=== PATIENT | female | born 1975 | race Two or more races ===

== ENCOUNTER 2016-09-07 18:04 | Emergency (ER) | payer OTHER ==
[2016-09-07] MEDS ORDERED: ONDANSETRON 4MG/2ML VIAL (J2405) As Ordered ONE (20:50)
[2016-09-07] MEDS ORDERED: KETOROLAC 30 MG/ML VIAL (J1885) As Ordered ONE (20:50)
[2016-09-07 21:17] LABS: BASO # 0.1 K/mm3 (0.0-0.2); BASO % 1.7 % (0.0-1.0); EOS % 0.1 % (0.0-3.0); LARGE UNSTAINED CELL % 0.3 % (0.0-4.0); LYMPH # 0.2 K/mm3 (1.5-4.5); LYMPH % 2.5 % (24.0-44.0); MEAN CORPUSCULAR HEMOGLOBIN 32.6 pg (27.0-33.0); MEAN CORPUSCULAR HGB CONC 34.4 g/dl (32.0-36.5); MEAN CORPUSCULAR VOLUME 94.8 fl (80.0-96.0); MONO # 0.2 K/mm3 (0.0-0.8); MONO % 2.8 % (0.0-5.0); NEUTROPHILS # 7.8 K/mm3 (1.8-7.7); NEUTROPHILS % 92.5 % (36.0-66.0); PLATELET COUNT, AUTOMATED 244 k/mm3 (150-450); RED CELL DISTRIBUTION WIDTH 13.1 % (11.5-14.5); WHITE BLOOD COUNT 8.4 K/mm3 (4.0-10.0)
[2016-09-07 21:33] LABS: ALBUMIN 3.7 GM/DL (3.2-5.2); ALBUMIN/GLOBULIN RATIO 1.23 (1.00-1.93); ALKALINE PHOSPHATASE 63 U/L (45-117); ALT/SGPT 15 U/L (12-78); ANION GAP 9 MEQ/L (8-16); AST/SGOT 8 U/L (15-37); BILIRUBIN,DIRECT 0.2 MG/DL (0.0-0.2); BILIRUBIN,TOTAL 1.2 MG/DL (0.2-1.0); BLOOD UREA NITROGEN 15 MG/DL (7-18); CALCIUM LEVEL 8.2 MG/DL (8.5-10.1); CARBON DIOXIDE LEVEL 24 MEQ/L (21-32); CHLORIDE LEVEL 107 MEQ/L (98-107); CREATININE FOR GFR 0.69 MG/DL (0.55-1.02); GLOMERULAR FILTRATION RATE > 60.0 (>58); GLUCOSE, FASTING 105 MG/DL (70-105); POTASSIUM SERUM 3.9 MEQ/L (3.5-5.1); SODIUM LEVEL 140 MEQ/L (136-145); TOTAL PROTEIN 6.7 GM/DL (6.4-8.2)
[2016-09-07] MEDS ORDERED: ISOVUE-370 76% 100ML VIAL (Q9967) As Ordered ONE (22:09)
[2016-09-07] MEDS ORDERED: MORPHINE 4 MG/ML 1ML SYRINGE As Ordered ONE (22:14)
--- NOTE | 2016-09-07 23:10 | REPUSA ---
CT of the abdomen and pelvis with contrast Clinical statement: Pain. Technique: Multiple axial CT images were obtained from the base of the lungs through the floor of the pelvis utilizing 5 mm axial slices after administration of nonionic intravenous contrast. Coronal an d sagittal reconstructions were also obtained. No comparison is available. Findings: Chest: The visualized lung bases are clear. Abdomen: The liver, spleen, pancreas, kidneys, gallbladder, and adrenal glands are unremarkable. The aorta is within normal limits. There is no evidence of abdominal lymphadenopathy or ascites. Pelvis: The bowel is unremarkable, with no obstructive or inflammatory changes. The appendix is not c learly identified, but now surrounding inflammatory changes are appreciated in the right lower quadra nt. The urinary bladder is within normal limits. There is a large solid mass in the posterior uterine fundus, measuring 9.2 x 7.9 cm. Diffuse heterogeneous enhancement of this lesion is noted. The adnex a are otherwise unremarkable.. There is no evidence of pelvic lymphadenopathy or ascites. Bones: There are no suspicious osseous abnormalities seen. Impression: 1. Large enhancing posterior uterine fundal mass, most consistent with a fibroid. If there is further clinical concern, ultrasound could be performed. 2. No obstructive or inflammatory bowel changes.
--- NOTE | 2016-09-07 23:42 | EDDOCDS ---
Physician Documentation [facility] Name: Yenifer Aguilar Age: 41 yrs Sex: Female : 1975 Arrival Date: 09/07/2016 Time: 18:04 Bed I7 Private MD: JEAN Alexis Disposition: 09/07/16 23:21 Discharged to Home/Self Care. Impression: Generalized abdominal pain, Vomiting, Diarrhea, unspecified, Leiomyoma of uterus - Fibriod 9.2 x7.9cm in size . - Condition is Stable. - Discharge Instructions: Abdominal Pain, Adult, Food Choices to Help Relieve Diarrhea, Adult, Nausea and Vomiting, Uterine Fibroids, [id number]. - Prescriptions for ZOFRAN ODT 4 mg - dissolve 1 tablet by ORAL route 4 times per day As needed do not chew, do not swallow whole; 10 tablet. - Medication Reconciliation, Local Pharmacy Hours, Work Release Form - 2 day form. - Follow up: JEAN Alexis; When: Call to arrange an appointment; Reason: Recheck today's complaints, Continuance of care. - Problem is new. - Symptoms have improved. Historical: - Allergies: Aspirin; Percocet; - Home Meds: 1. ibuprofen 200 mg oral tab 2 tabs (Last dose: 09/07/2016 08:00) 2. Pepto-Bismol Oral Unknown as needed (Last dose: 09/07/2016 08:00) - PMHx: none; - PSHx: none; - Social history: Smoking status: Patient uses tobacco products, light tobacco smoker. Patient uses alcohol only on a social basis. Patient/guardian denies using street drugs, No barriers to communication noted, The patient speaks fluent Romanian, Speaks appropriately for age. - Family history: Not pertinent. - : The pt / caregiver states he / she is not on anticoagulants. Home medication list is obtained from the patient. - Exposure Risk Screening:: None identified. 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 6 in. (167.64 cm); Pain 10/10; 23:39 BP 101 / 59 RA Sitting (auto/reg); Pulse 80 MON; Resp 18 S; Temp 99.7(O); Pulse Ox 95% ka4 on R/A; Pain 0/10; 18:06 Body Mass Index 23.40 (65.77 kg, 167.64 cm) dem1 23:39 Provider aware of BP ka4 MDM: 20:49 NS 0.9% 1000 ml IV at bolus once ordered. mo1 20:49 Ondansetron 4 mg IVP once ordered. mo1 20:49 IV Saline Lock ordered. mo1 20:49 Undress patient appropriately for examination ordered. mo1 20:49 ketorolac 30 mg IVP once ordered. mo1 20:49 UCG by Nursing ordered. mo1 20:50 Basic Metabolic Profile Ordered. EDMS 20:50 CBC with Diff Ordered. EDMS 20:50 Lipase Ordered. EDMS 20:50 Liver Profile Ordered. EDMS 20:50 Urinalysis Ordered. EDMS 20:50 Urine Culture Ordered. EDMS 20:50 NOTHING BY MOUTH+DIET ordered. EDMS 21:01 Financial registration complete. gjb 21:06 [facility] Payment Agreement was scanned into [employer] and attached to record. gjb 21:33 CBC with Diff Reviewed. mo1 21:47 Basic Metabolic Profile Reviewed. mo1 21:48 Lipase Reviewed. mo1 21:48 Liver Profile Reviewed. mo1 21:48 Urinalysis Reviewed. mo1 21:52 morphine 4 mg IVP once ordered. mo1 21:53 CT ABD & PELVIS: IV Contrast Only Ordered. EDMS Point of Care Testing: Urine : 20:56 hCG Reading: Negative; Control Reading: Positive; ck1 Ranges: Administered Medications: 21:00 Drug: NS 0.9% 1000 ml [sodium chloride 0.9 % intravenous solution] Route: IV; Rate: ttb bolus; Site: right antecubital; 21:00 Drug: Ondansetron 4 mg [ondansetron HCl 2 mg/mL intravenous solution (2 mL)] Route: ttb IVP; Site: right antecubital; 23:42 Follow up: Response: Nausea is resolved ka4 21:05 Drug: ketorolac 30 mg [ketorolac 30 mg/mL (1 mL) injection solution (1 mL)] Route: IVP; ttb Site: right antecubital; 22:27 Follow up: Response: No significant change. rs3 22:27 Drug: morphine 4 mg [morphine 4 mg/mL intravenous cartridge (1 mL)] Route: IVP; Site: rs3 left antecubital; 23:03 Follow up: Response: Pain is decreased rs3 Signatures: Dispatcher [employer] EDGin Franks RN RN ck1 Siri Ernandez RN RN ttb Cipriano Padron PA PA mo1 Cari Carrasco LPN SENIOR WINDOWS SYSTEMS ENGINEER ka4 Rosangela Auguste Rosemary RN rs3 The chart was reviewed and I authenticate all verbal orders and agree with the evaluation and treatment provided.Attachments: 21:06 [facility] Payment Agreement chey MTDD
--- NOTE | 2016-09-07 23:42 | EDDOCDS ---
Nurse's Notes [facility] Name: Yenifer Aguilar Age: 41 yrs Sex: Female : 1975 Arrival Date: 09/07/2016 Time: 18:04 Bed I7 / 29 Private MD: JEAN Alexis Diagnosis: Generalized abdominal pain;Vomiting;Diarrhea, unspecified;Leiomyoma of uterus-Fibriod 9.2 x7.9cm in size Presentation: 09/07 18:37 Presenting complaint: Patient states: lower abd pain started this morning, woke pt. ttb N/V/D all day. Risk factors: the patient reports no vaginal bleeding. Adult Sepsis Screening: The patient does not have new or worsening altered mentation. Patient's respiratory rate is less than 22. Systolic blood pressure is greater than 100. Patient has a qSOFA score of 0- Negative Sepsis Screen. Suicide/Homicide risk assessment- the patient denies having any suicidal and/or homicidal ideations and does not present with any other emotional, behavioral or mental health complaints. Status: The patient is a dependent. Transition of care: patient was not received from another setting of care. 18:37 Acuity: UMESH Level 3 ttb 18:37 Method Of Arrival: Walkin/Carried/Asstd ttb Triage Assessment: 18:38 General: Appears uncomfortable, well nourished, well groomed, Behavior is appropriate ttb for age, cooperative, pleasant. Pain: Location: lower abd , intermittent, 7/10. Pt Declines HIV testing. Neurological: Level of Consciousness is awake, alert. Cardiovascular: Chest pain is denied. Respiratory: No deficits noted. Airway is patent Respiratory effort is even, unlabored, Denies cough, shortness of breath. GI: Reports diarrhea, lower abdominal pain, nausea, vomiting. : Denies burning with urination, urinary frequency, urgency. Derm: Skin is normal. Injury Description: No known injury. 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 ibuprofen 200 mg oral tab 2 tabs (Last dose: 09/07/2016 08:00) 2. Pepto-Bismol Oral Unknown as needed (Last dose: 09/07/2016 08:00) - PMHx: none; - PSHx: none; - Social history: Smoking status: Patient uses tobacco products, light tobacco smoker. Patient uses alcohol only on a social basis. Patient/guardian denies using street drugs, No barriers to communication noted, The patient speaks fluent Maltese, Speaks appropriately for age. - Family history: Not pertinent. - : The pt / caregiver states he / she is not on anticoagulants. Home medication list is obtained from the patient. - Exposure Risk Screening:: None identified. Screenin:13 Screening information is obtained from the patient. Fall risk: No risks identified. ck1 Assistance ADL's: requires no assistance with activities of daily living. Abuse/DV Screen: The patient / caregiver reports he/she is: not in a situation that causes fear, pain or injury. Nutritional screening: No deficits noted. Advance Directives: Currently, there is no health care proxy. home support is adequate. Assessment: 20:12 General: Appears in no apparent distress, comfortable, Behavior is appropriate for age, ck1 cooperative. Pain: Location: abdomen Pain currently is 6 out of 10 on a pain scale. At worst was 13 out of 10 on a pain scale. Is episodic. Neurological: No deficits noted. GI: Abdomen is flat, non- distended Reports diarrhea, nausea, vomiting. : Denies burning with urination, urinary frequency, urgency. Derm: Skin is intact, is healthy with good turgor, Skin is pink, warm & dry. 21:06 Reassessment: Patient appears in no apparent distress at this time. pt resting on ttb stretcher. Abd pain continues. Meds given per orders. . Neurological: Level of Consciousness is awake, alert. Respiratory: No deficits noted. Airway is patent. 22:28 General: Appears in no apparent distress, Behavior is appropriate for age, cooperative. rs3 Respiratory: Airway is patent Respiratory effort is even, unlabored, Breath sounds are clear bilaterally. GI: Bowel sounds present X 4 quads. Abd is soft and non tender X 4 quads. Reports upper abdominal pain. 23:40 General: Appears in no apparent distress, comfortable, well nourished, well groomed, ka4 Behavior is appropriate for age, cooperative, pleasant. Pain: Denies pain. Neurological: Level of Consciousness is awake, alert, obeys commands, Oriented to person, place, time, Cloth Beamer are equal bilaterally Moves all extremities. Respiratory: Airway is patent Respiratory effort is even, unlabored, Respiratory pattern is regular, symmetrical. Derm: Skin is intact, is healthy with good turgor, Skin is pink, warm & dry. Vital Signs: 18:06 BP 127 / 62; Pulse 61; Resp 18; Temp 98.1(T); Pulse Ox 100% on R/A; Weight 65.77 kg; dem1 Height 5 ft. 6 in. (167.64 cm); Pain 10/10; 23:39 BP 101 / 59 RA Sitting (auto/reg); Pulse 80 MON; Resp 18 S; Temp 99.7(O); Pulse Ox 95% ka4 on R/A; Pain 0/10; 18:06 Body Mass Index 23.40 (65.77 kg, 167.64 cm) dem1 23:39 Provider aware of BP ka4 Vitals: 18:06 Log In Time: September 07, 2016 at 18:02. [facility] ED Course: 18:05 Patient visited by Barney Minaya. dem1 18:05 Patient moved to Waiting dem1 18:06 Vanesa [facility] is Private Physician. dem1 18:07 Patient visited by Barney Minaya. dem1 18:07 Patient moved to Pre RCE dem1 18:37 Triage Initiated ttb 18:40 Patient visited by Siri Ernandez, DOUGLAS. ttb 20:10 Patient moved to Triage 2 jmb 20:12 Patient visited by Gin Nguyen,DOUGLAS. ck1 20:13 The patient / caregiver is instructed regarding the plan of care and ED course. ck1 20:13 No IV's were initiated during this patient's visit. No procedures done that require ck1 assistance. 20:28 Cipriano Padron PA is PHCP. mo1 20:28 Gustavo Stokes DO is Attending Physician. mo1 20:36 Patient visited by Cipriano Padron PA. mo1 20:50 Patient moved to I ck1 20:52 Urinalysis Sent. ck1 20:52 Urine Culture Sent. ck1 20:57 Patient name changed from Zuehre\S\\S\Aguilar\S\ to Zuehre\S\ \S\Aguilar. EDMS 21:05 Liver Profile Sent. ttb 21:05 Lipase Sent. ttb 21:05 CBC with Diff Sent. ttb 21:05 Basic Metabolic Profile Sent. ttb 21:05 Inserted peripheral IV: 20gauge IV in right antecubital area and blood collected. ttb Patient tolerated the procedure well. Labs drawn. (by ED staff). Urine collected. Clean catch specimen. 21:06 Patient visited by Siri Ernandez RN. ttb 21:06 Patient visited by Siri Ernandez RN. ttb 21:06 [facility] Payment Agreement was scanned into [employer] and attached to record. gjb 21:48 Patient visited by Lauren Spring RN. rs3 22:28 Patient visited by Lauren Spring RN. rs3 23:00 Patient visited by Lauren Spring RN. rs3 23:21 Vanesa [facility] is Referral Physician. mo1 23:41 Discontinued IV lock intact, bleeding controlled, pressure dressing applied, No ka4 redness/swelling at site. Administered Medications: 21:00 Drug: NS 0.9% 1000 ml [sodium chloride 0.9 % intravenous solution] Route: IV; Rate: ttb bolus; Site: right antecubital; 21:00 Drug: Ondansetron 4 mg [ondansetron HCl 2 mg/mL intravenous solution (2 mL)] Route: ttb IVP; Site: right antecubital; 23:42 Follow up: Response: Nausea is resolved ka4 21:05 Drug: ketorolac 30 mg [ketorolac 30 mg/mL (1 mL) injection solution (1 mL)] Route: IVP; ttb Site: right antecubital; 22:27 Follow up: Response: No significant change. rs3 22:27 Drug: morphine 4 mg [morphine 4 mg/mL intravenous cartridge (1 mL)] Route: IVP; Site: rs3 left antecubital; 23:03 Follow up: Response: Pain is decreased rs3 Point of Care Testing: Urine : 20:56 hCG Reading: Negative; Control Reading: Positive; ck1 Ranges: Order Results: Lab Order: Basic Metabolic Profile; SPEC'M 09/07/16 21:02 Test: GLUCOSE, FASTING; Value: 105; Range: 70-105; Units: MG/DL; Status: F Test: BLOOD UREA NITROGEN; Value: 15; Range: 7-18; Units: MG/DL; Status: F Test: CREATININE FOR GFR; Value: 0.69; Range: 0.55-1.02; Units: MG/DL; Status: F Test: GLOMERULAR FILTRATION RATE; Value: > 60.0; Range: >58; Status: F Test: SODIUM LEVEL; Value: 140; Range: 136-145; Units: MEQ/L; Status: F Test: POTASSIUM SERUM; Value: 3.9; Range: 3.5-5.1; Units: MEQ/L; Status: F Test: CHLORIDE LEVEL; Value: 107; Range: 98-107; Units: MEQ/L; Status: F Test: CARBON DIOXIDE LEVEL; Value: 24; Range: 21-32; Units: MEQ/L; Status: F Test: ANION GAP; Value: 9; Range: 8-16; Units: MEQ/L; Status: F Test: CALCIUM LEVEL; Value: 8.2; Range: 8.5-10.1; Abnormal: Below low normal; Units: MG/DL; Status: F Test Note: ; Units are mL/min/1.73 m2 Chronic Kidney Disease Staging per NKF: Stage I & II GFR >=60 Normal to Mildly Decreased Stage III GFR 30-59 Moderately Decreased Stage IV GFR 15-29 Severely Decreased Stage V GFR <15 Very Little GFR Left ESRD GFR <15 on BENEFITS SALES CONSULTANT Lab Order: CBC with Diff; SPEC'M 09/07/16 21:02 Test: WHITE BLOOD COUNT; Value: 8.4; Range: 4.0-10.0; Units: K/mm3; Status: F Test: RED BLOOD COUNT; Value: 4.09; Range: 4.00-5.40; Units: M/mm3; Status: F Test: HEMOGLOBIN; Value: 13.3; Range: 12.0-16.0; Units: g/dl; Status: F Test: HEMATOCRIT; Value: 38.8; Range: 36.0-47.0; Units: %; Status: F Test: MEAN CORPUSCULAR VOLUME; Value: 94.8; Range: 80.0-96.0; Units: fl; Status: F Test: MEAN CORPUSCULAR HEMOGLOBIN; Value: 32.6; Range: 27.0-33.0; Units: pg; Status: F Test: MEAN CORPUSCULAR HGB CONC; Value: 34.4; Range: 32.0-36.5; Units: g/dl; Status: F Test: RED CELL DISTRIBUTION WIDTH; Value: 13.1; Range: 11.5-14.5; Units: %; Status: F Test: PLATELET COUNT, AUTOMATED; Value: 244; Range: 150-450; Units: k/mm3; Status: F Test: NEUTROPHILS %; Value: 92.5; Range: 36.0-66.0; Abnormal: Above high normal; Units: %; Status: F Test: LYMPH %; Value: 2.5; Range: 24.0-44.0; Abnormal: Below low normal; Units: %; Status: F Test: MONO %; Value: 2.8; Range: 0.0-5.0; Units: %; Status: F Test: EOS %; Value: 0.1; Range: 0.0-3.0; Units: %; Status: F Test: BASO %; Value: 1.7; Range: 0.0-1.0; Abnormal: Above high normal; Units: %; Status: F Test: LARGE UNSTAINED CELL %; Value: 0.3; Range: 0.0-4.0; Units: %; Status: F Test: NEUTROPHILS #; Value: 7.8; Range: 1.8-7.7; Abnormal: Above high normal; Units: K/mm3; Status: F Test: LYMPH #; Value: 0.2; Range: 1.5-4.5; Abnormal: Below low normal; Units: K/mm3; Status: F Test: MONO #; Value: 0.2; Range: 0.0-0.8; Units: K/mm3; Status: F Test: EOS #; Value: 0.0; Range: 0.0-0.50; Units: K/mm3; Status: F Test: BASO #; Value: 0.1; Range: 0.0-0.2; Units: K/mm3; Status: F Test: LARGE UNSTAINED CELL #; Value: 0.0; Range: 0.0-0.4; Units: K/mm3; Status: F Lab Order: Lipase; SPEC'M 09/07/16 21:02 Test: LIPASE; Value: 60; Range: 73-393; Abnormal: Below low normal; Units: U/L; Status: F Lab Order: Liver Profile; SPEC'M 09/07/16 21:02 Test: AST/SGOT; Value: 8; Range: 15-37; Abnormal: Below low normal; Units: U/L; Status: F Test: ALT/SGPT; Value: 15; Range: 12-78; Units: U/L; Status: F Test: ALKALINE PHOSPHATASE; Value: 63; Range: 45-117; Units: U/L; Status: F Test: BILIRUBIN,TOTAL; Value: 1.2; Range: 0.2-1.0; Abnormal: Above high normal; Units: MG/DL; Status: F Test: BILIRUBIN,DIRECT; Value: 0.2; Range: 0.0-0.2; Units: MG/DL; Status: F Test: TOTAL PROTEIN; Value: 6.7; Range: 6.4-8.2; Units: GM/DL; Status: F Test: ALBUMIN; Value: 3.7; Range: 3.2-5.2; Units: GM/DL; Status: F Test: ALBUMIN/GLOBULIN RATIO; Value: 1.23; Range: 1.00-1.93; Status: F Lab Order: Urinalysis; SPEC'M 09/07/16 20:49 Test: APPEARANCE, URINE; Value: HAZY; Range: CLEAR; Status: F Test: COLOR, URINE; Value: YELLOW; Range: YELLOW; Status: F Test: PH,URINE; Value: 6.0; Range: 5.0-9.0; Units: UNITS; Status: F Test: SPECIFIC GRAVITY URINE AUTO; Value: 1.024; Range: 1.002-1.035; Status: F Test: PROTEIN, URINE AUTO; Value: NEGATIVE; Range: NEGATIVE; Units: mg/dL; Status: F Test: GLUCOSE, URINE (UA) AUTO; Value: NEGATIVE; Range: NEGATIVE; Units: mg/dL; Status: F Test: KETONE, URINE AUTO; Value: NEGATIVE; Range: NEGATIVE; Units: mg/dL; Status: F Test: UROBILINOGEN, URINE AUTO; Value: 0.2; Range: 0.0-2.0; Units: mg/dL; Status: F Test: BILIRUBIN, URINE AUTO; Value: NEGATIVE; Range: NEGATIVE; Status: F Test: NITRITE, URINE AUTO; Value: NEGATIVE; Range: NEGATIVE; Status: F Test: LEUKOCYTE ESTERASE, URINE AUTO; Value: NEGATIVE; Range: NEGATIVE; Status: F Test: BLOOD, URINE BLOOD; Value: 1+; Range: NEGATIVE; Abnormal: Above high normal; Status: F Test: WBC, URINE AUTO; Value: 1; Range: 0-3; Units: /HPF; Status: F Test: RBC, URINE AUTO; Value: 11; Range: 0-3; Abnormal: Above high normal; Units: /HPF; Status: F Test: BACTERIA, URINE AUTO; Value: NEGATIVE; Range: NEGATIVE; Status: F Test: SQUAMOUS EPITHELIAL CELL UR AU; Value: 4; Range: 0-6; Units: /HPF; Status: F Test: MUCUS, URINE; Value: SMALL; Range: NEGATIVE; Status: F Test: HYALINE CAST, URINE AUTO; Value: 0; Range: 0-1; Units: /LPF; Status: F Outcome: 23:21 Discharge ordered by Provider. mo1 23:41 Discharge Assessment: Patient awake, alert and oriented x 3. No cognitive and/or ka4 functional deficits noted. Patient verbalized understanding of disposition instructions. patient administered narcotics - yes. Pt provided with safe discharge. The following High Risk Discharge criteria are identified: None. Discharged to home ambulatory. Condition: good Condition: stable. CT Study completed. Property :Personal belongings accompany Pt. 23:42 Patient left the ED. ka4 Signatures: Dispatcher [employer] EDAZ Gin NguyenRN RN ata1 Lauren Spring RN RN rs3 Barney Min[facility] Siri Ernandez RN RN ttb O'Hagan, Michael, PA PA mo1 Pranav Cruz,RN Cari Kim LPN LPN ka4 Rosangela Auguste MTDD
--- NOTE | 2016-09-10 00:43 | EDDOCDS ---
Physician Documentation [facility] Name: Yenifer Aguilar Age: 41 yrs Sex: Female : 1975 Arrival Date: 09/07/2016 Time: 18:04 Bed I7 Private MD: JEAN Alexis Disposition: 09/07/16 23:21 Discharged to Home/Self Care. Impression: Generalized abdominal pain, Vomiting, Diarrhea, unspecified, Leiomyoma of uterus - Fibriod 9.2 x7.9cm in size . - Condition is Stable. - Discharge Instructions: Abdominal Pain, Adult, Food Choices to Help Relieve Diarrhea, Adult, Nausea and Vomiting, Uterine Fibroids, [id number]. - Prescriptions for ZOFRAN ODT 4 mg - dissolve 1 tablet by ORAL route 4 times per day As needed do not chew, do not swallow whole; 10 tablet. - Medication Reconciliation, Local Pharmacy Hours, Work Release Form - 2 day form. - Follow up: JEAN Alexis; When: Call to arrange an appointment; Reason: Recheck today's complaints, Continuance of care. - Problem is new. - Symptoms have improved. Historical: - Allergies: Aspirin; Percocet; - Home Meds: 1. ibuprofen 200 mg oral tab 2 tabs (Last dose: 09/07/2016 08:00) 2. Pepto-Bismol Oral Unknown as needed (Last dose: 09/07/2016 08:00) - PMHx: none; - PSHx: none; - Social history: Smoking status: Patient uses tobacco products, light tobacco smoker. Patient uses alcohol only on a social basis. Patient/guardian denies using street drugs, No barriers to communication noted, The patient speaks fluent Finnish, Speaks appropriately for age. - Family history: Not pertinent. - : The pt / caregiver states he / she is not on anticoagulants. Home medication list is obtained from the patient. - Exposure Risk Screening:: None identified. 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 6 in. (167.64 cm); Pain 10/10; 23:39 BP 101 / 59 RA Sitting (auto/reg); Pulse 80 MON; Resp 18 S; Temp 99.7(O); Pulse Ox 95% ka4 on R/A; Pain 0/10; 18:06 Body Mass Index 23.40 (65.77 kg, 167.64 cm) dem1 23:39 Provider aware of BP ka4 MDM: 20:49 NS 0.9% 1000 ml IV at bolus once ordered. mo1 20:49 Ondansetron 4 mg IVP once ordered. mo1 20:49 IV Saline Lock ordered. mo1 20:49 Undress patient appropriately for examination ordered. mo1 20:49 ketorolac 30 mg IVP once ordered. mo1 20:49 UCG by Nursing ordered. mo1 20:50 Basic Metabolic Profile Ordered. EDMS 20:50 CBC with Diff Ordered. EDMS 20:50 Lipase Ordered. EDMS 20:50 Liver Profile Ordered. EDMS 20:50 Urinalysis Ordered. EDMS 20:50 Urine Culture Ordered. EDMS 20:50 NOTHING BY MOUTH+DIET ordered. EDMS 21:01 Financial registration complete. gjb 21:06 [facility] Payment Agreement was scanned into [employer] and attached to record. gjb 21:33 CBC with Diff Reviewed. mo1 21:47 Basic Metabolic Profile Reviewed. mo1 21:48 Lipase Reviewed. mo1 21:48 Liver Profile Reviewed. mo1 21:48 Urinalysis Reviewed. mo1 21:52 morphine 4 mg IVP once ordered. mo1 21:53 CT ABD & PELVIS: IV Contrast Only Ordered. EDMS 09/08 07:20 T-Sheet-- Draft Copy was scanned into [employer] and attached to record. gb 11:53 Radiology Report was scanned into [employer] and attached to record. gb 21:15 ED course: ft drgonzales fp faxed formal report of ct abd/p for fu mlg. ml Point of Care Testing: Urine : 09/07 20:56 hCG Reading: Negative; Control Reading: Positive; ck1 Ranges: Administered Medications: 21:00 Drug: NS 0.9% 1000 ml [sodium chloride 0.9 % intravenous solution] Route: IV; Rate: ttb bolus; Site: right antecubital; 21:00 Drug: Ondansetron 4 mg [ondansetron HCl 2 mg/mL intravenous solution (2 mL)] Route: ttb IVP; Site: right antecubital; 23:42 Follow up: Response: Nausea is resolved ka4 21:05 Drug: ketorolac 30 mg [ketorolac 30 mg/mL (1 mL) injection solution (1 mL)] Route: IVP; ttb Site: right antecubital; 22:27 Follow up: Response: No significant change. rs3 22:27 Drug: morphine 4 mg [morphine 4 mg/mL intravenous cartridge (1 mL)] Route: IVP; Site: rs3 left antecubital; 23:03 Follow up: Response: Pain is decreased rs3 Signatures: Dispatcher [employer] EDMS Camden-Lorri Carreon MD MD Shahla Pope, Gin BobRN RN ck1 Siri Ernandez RN RN ttb Cipriano Padron PA PA mo1 Cari Carrasco LPN LPN ka4 Rosangela Auguste Rosemary RN rs3 The chart was reviewed and I authenticate all verbal orders and agree with the evaluation and treatment provided.Attachments: 21:06 [facility] Payment Agreement gjb 09/08 07:20 T-Sheet-- Draft Copy gb Chart Complete [facility]
--- NOTE | 2016-09-10 00:43 | EDDOCDS ---
Physician Documentation [facility] Name: Yenifer Aguilar Age: 41 yrs Sex: Female : 1975 Arrival Date: 09/07/2016 Time: 18:04 Bed I7 Private MD: JEAN Alexis Disposition: 09/07/16 23:21 Discharged to Home/Self Care. Impression: Generalized abdominal pain, Vomiting, Diarrhea, unspecified, Leiomyoma of uterus - Fibriod 9.2 x7.9cm in size . - Condition is Stable. - Discharge Instructions: Abdominal Pain, Adult, Food Choices to Help Relieve Diarrhea, Adult, Nausea and Vomiting, Uterine Fibroids, Dmoh-ip-Nohk. - Prescriptions for ZOFRAN ODT 4 mg - dissolve 1 tablet by ORAL route 4 times per day As needed do not chew, do not swallow whole; 10 tablet. - Medication Reconciliation, Local Pharmacy Hours, Work Release Form - 2 day form. - Follow up: JEAN Alexis; When: Call to arrange an appointment; Reason: Recheck today's complaints, Continuance of care. - Problem is new. - Symptoms have improved. Historical: - Allergies: Aspirin; Percocet; - Home Meds: 1. ibuprofen 200 mg oral tab 2 tabs (Last dose: 09/07/2016 08:00) 2. Pepto-Bismol Oral Unknown as needed (Last dose: 09/07/2016 08:00) - PMHx: none; - PSHx: none; - Social history: Smoking status: Patient uses tobacco products, light tobacco smoker. Patient uses alcohol only on a social basis. Patient/guardian denies using street drugs, No barriers to communication noted, The patient speaks fluent Sudanese, Speaks appropriately for age. - Family history: Not pertinent. - : The pt / caregiver states he / she is not on anticoagulants. Home medication list is obtained from the patient. - Exposure Risk Screening:: None identified. 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 6 in. (167.64 cm); Pain 10/10; 23:39 BP 101 / 59 RA Sitting (auto/reg); Pulse 80 MON; Resp 18 S; Temp 99.7(O); Pulse Ox 95% ka4 on R/A; Pain 0/10; 18:06 Body Mass Index 23.40 (65.77 kg, 167.64 cm) dem1 23:39 Provider aware of BP ka4 MDM: 20:49 NS 0.9% 1000 ml IV at bolus once ordered. mo1 20:49 Ondansetron 4 mg IVP once ordered. mo1 20:49 IV Saline Lock ordered. mo1 20:49 Undress patient appropriately for examination ordered. mo1 20:49 ketorolac 30 mg IVP once ordered. mo1 20:49 UCG by Nursing ordered. mo1 20:50 Basic Metabolic Profile Ordered. EDMS 20:50 CBC with Diff Ordered. EDMS 20:50 Lipase Ordered. EDMS 20:50 Liver Profile Ordered. EDMS 20:50 Urinalysis Ordered. EDMS 20:50 Urine Culture Ordered. EDMS 20:50 NOTHING BY MOUTH+DIET ordered. EDMS 21:01 Financial registration complete. gjb 21:06 [facility] Payment Agreement was scanned into [employer] and attached to record. gjb 21:33 CBC with Diff Reviewed. mo1 21:47 Basic Metabolic Profile Reviewed. mo1 21:48 Lipase Reviewed. mo1 21:48 Liver Profile Reviewed. mo1 21:48 Urinalysis Reviewed. mo1 21:52 morphine 4 mg IVP once ordered. mo1 21:53 CT ABD & PELVIS: IV Contrast Only Ordered. EDMS 09/08 07:20 T-Sheet-- Draft Copy was scanned into [employer] and attached to record. gb 11:53 Radiology Report was scanned into [employer] and attached to record. gb 21:15 ED course: ft drgonzales fp faxed formal report of ct abd/p for fu mlg. ml Point of Care Testing: Urine : 09/07 20:56 hCG Reading: Negative; Control Reading: Positive; ck1 Ranges: Administered Medications: 21:00 Drug: NS 0.9% 1000 ml [sodium chloride 0.9 % intravenous solution] Route: IV; Rate: ttb bolus; Site: right antecubital; 21:00 Drug: Ondansetron 4 mg [ondansetron HCl 2 mg/mL intravenous solution (2 mL)] Route: ttb IVP; Site: right antecubital; 23:42 Follow up: Response: Nausea is resolved ka4 21:05 Drug: ketorolac 30 mg [ketorolac 30 mg/mL (1 mL) injection solution (1 mL)] Route: IVP; ttb Site: right antecubital; 22:27 Follow up: Response: No significant change. rs3 22:27 Drug: morphine 4 mg [morphine 4 mg/mL intravenous cartridge (1 mL)] Route: IVP; Site: rs3 left antecubital; 23:03 Follow up: Response: Pain is decreased rs3 Signatures: Dispatcher [employer] EDMS Camden-Lorri Carreon MD MD Shahla Pope, Gin BobRN RN ck1 Siri Ernandez RN RN ttb Cipriano Padron PA PA mo1 Cari Carrasco LPN LPN ka4 Rosangela Auguste Rosemary RN rs3 The chart was reviewed and I authenticate all verbal orders and agree with the evaluation and treatment provided.Attachments: 21:06 [facility] Payment Agreement gjb 09/08 07:20 T-Sheet-- Draft Copy gb Chart Complete [facility]
--- NOTE | 2016-09-10 00:43 | EDDOCDS ---
Nurse's Notes [facility] Name: Yenifer Aguilar Age: 41 yrs Sex: Female : 1975 Arrival Date: 09/07/2016 Time: 18:04 Bed I7 / 29 Private MD: JEAN Alexis Diagnosis: Generalized abdominal pain;Vomiting;Diarrhea, unspecified;Leiomyoma of uterus-Fibriod 9.2 x7.9cm in size Presentation: 09/07 18:37 Presenting complaint: Patient states: lower abd pain started this morning, woke pt. ttb N/V/D all day. Risk factors: the patient reports no vaginal bleeding. Adult Sepsis Screening: The patient does not have new or worsening altered mentation. Patient's respiratory rate is less than 22. Systolic blood pressure is greater than 100. Patient has a qSOFA score of 0- Negative Sepsis Screen. Suicide/Homicide risk assessment- the patient denies having any suicidal and/or homicidal ideations and does not present with any other emotional, behavioral or mental health complaints. Status: The patient is a dependent. Transition of care: patient was not received from another setting of care. 18:37 Acuity: UMESH Level 3 ttb 18:37 Method Of Arrival: Walkin/Carried/Asstd ttb Triage Assessment: 18:38 General: Appears uncomfortable, well nourished, well groomed, Behavior is appropriate ttb for age, cooperative, pleasant. Pain: Location: lower abd , intermittent, 7/10. Pt Declines HIV testing. Neurological: Level of Consciousness is awake, alert. Cardiovascular: Chest pain is denied. Respiratory: No deficits noted. Airway is patent Respiratory effort is even, unlabored, Denies cough, shortness of breath. GI: Reports diarrhea, lower abdominal pain, nausea, vomiting. : Denies burning with urination, urinary frequency, urgency. Derm: Skin is normal. Injury Description: No known injury. 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 ibuprofen 200 mg oral tab 2 tabs (Last dose: 09/07/2016 08:00) 2. Pepto-Bismol Oral Unknown as needed (Last dose: 09/07/2016 08:00) - PMHx: none; - PSHx: none; - Social history: Smoking status: Patient uses tobacco products, light tobacco smoker. Patient uses alcohol only on a social basis. Patient/guardian denies using street drugs, No barriers to communication noted, The patient speaks fluent Croatian, Speaks appropriately for age. - Family history: Not pertinent. - : The pt / caregiver states he / she is not on anticoagulants. Home medication list is obtained from the patient. - Exposure Risk Screening:: None identified. Screenin:13 Screening information is obtained from the patient. Fall risk: No risks identified. ck1 Assistance ADL's: requires no assistance with activities of daily living. Abuse/DV Screen: The patient / caregiver reports he/she is: not in a situation that causes fear, pain or injury. Nutritional screening: No deficits noted. Advance Directives: Currently, there is no health care proxy. home support is adequate. Assessment: 20:12 General: Appears in no apparent distress, comfortable, Behavior is appropriate for age, ck1 cooperative. Pain: Location: abdomen Pain currently is 6 out of 10 on a pain scale. At worst was 13 out of 10 on a pain scale. Is episodic. Neurological: No deficits noted. GI: Abdomen is flat, non- distended Reports diarrhea, nausea, vomiting. : Denies burning with urination, urinary frequency, urgency. Derm: Skin is intact, is healthy with good turgor, Skin is pink, warm & dry. 21:06 Reassessment: Patient appears in no apparent distress at this time. pt resting on ttb stretcher. Abd pain continues. Meds given per orders. . Neurological: Level of Consciousness is awake, alert. Respiratory: No deficits noted. Airway is patent. 22:28 General: Appears in no apparent distress, Behavior is appropriate for age, cooperative. rs3 Respiratory: Airway is patent Respiratory effort is even, unlabored, Breath sounds are clear bilaterally. GI: Bowel sounds present X 4 quads. Abd is soft and non tender X 4 quads. Reports upper abdominal pain. 23:40 General: Appears in no apparent distress, comfortable, well nourished, well groomed, ka4 Behavior is appropriate for age, cooperative, pleasant. Pain: Denies pain. Neurological: Level of Consciousness is awake, alert, obeys commands, Oriented to person, place, time, Dishcloth Folder are equal bilaterally Moves all extremities. Respiratory: Airway is patent Respiratory effort is even, unlabored, Respiratory pattern is regular, symmetrical. Derm: Skin is intact, is healthy with good turgor, Skin is pink, warm & dry. Vital Signs: 18:06 BP 127 / 62; Pulse 61; Resp 18; Temp 98.1(T); Pulse Ox 100% on R/A; Weight 65.77 kg; dem1 Height 5 ft. 6 in. (167.64 cm); Pain 10/10; 23:39 BP 101 / 59 RA Sitting (auto/reg); Pulse 80 MON; Resp 18 S; Temp 99.7(O); Pulse Ox 95% ka4 on R/A; Pain 0/10; 18:06 Body Mass Index 23.40 (65.77 kg, 167.64 cm) dem1 23:39 Provider aware of BP ka4 Vitals: 18:06 Log In Time: September 07, 2016 at 18:02. [facility] ED Course: 18:05 Patient visited by Barney Minaya. dem1 18:05 Patient moved to Waiting dem1 18:06 Vanesa [facility] is Private Physician. dem1 18:07 Patient visited by Barney Minaya. dem1 18:07 Patient moved to Pre RCE dem1 18:37 Triage Initiated ttb 18:40 Patient visited by Siri Ernandez, DOUGLAS. ttb 20:10 Patient moved to Triage 2 jmb 20:12 Patient visited by Gin Nguyen,DOUGLAS. ck1 20:13 The patient / caregiver is instructed regarding the plan of care and ED course. ck1 20:13 No IV's were initiated during this patient's visit. No procedures done that require ck1 assistance. 20:28 Cipriano Padron PA is PHCP. mo1 20:28 Gustavo Stokes DO is Attending Physician. mo1 20:36 Patient visited by Cipriano Padron PA. mo1 20:50 Patient moved to I ck1 20:52 Urinalysis Sent. ck1 20:52 Urine Culture Sent. ck1 20:57 Patient name changed from Zuehre\S\\S\Aguilar\S\ to Zuehre\S\ \S\Aguilar. EDMS 21:05 Liver Profile Sent. ttb 21:05 Lipase Sent. ttb 21: CBC with Diff Sent. ttb 21:05 Basic Metabolic Profile Sent. ttb 21:05 Inserted peripheral IV: 20gauge IV in right antecubital area and blood collected. ttb Patient tolerated the procedure well. Labs drawn. (by ED staff). Urine collected. Clean catch specimen. 21:06 Patient visited by Siri Ernandez RN. ttb 21:06 Patient visited by Siri Ernandez RN. ttb 21:06 [facility] Payment Agreement was scanned into [employer] and attached to record. gjb 21:48 Patient visited by Lauren Spring RN. rs3 22:28 Patient visited by Lauren Spring RN. rs3 23:00 Patient visited by Lauren Spring RN. rs3 23:21 Vanesa [facility] [place] is Referral Physician. mo1 23:41 Discontinued IV lock intact, bleeding controlled, pressure dressing applied, No ka4 redness/swelling at site. 23:49 CT ABD & PELVIS: IV Contrast Only Returned. EDMS 09/08 07:20 T-Sheet-- Draft Copy was scanned into [employer] and attached to record. gb 11:53 Radiology Report was scanned into [employer] and attached to record. gb Administered Medications: 09/07 21:00 Drug: NS 0.9% 1000 ml [sodium chloride 0.9 % intravenous solution] Route: IV; Rate: ttb bolus; Site: right antecubital; 21:00 Drug: Ondansetron 4 mg [ondansetron HCl 2 mg/mL intravenous solution (2 mL)] Route: ttb IVP; Site: right antecubital; 23:42 Follow up: Response: Nausea is resolved ka4 21:05 Drug: ketorolac 30 mg [ketorolac 30 mg/mL (1 mL) injection solution (1 mL)] Route: IVP; ttb Site: right antecubital; 22:27 Follow up: Response: No significant change. rs3 22:27 Drug: morphine 4 mg [morphine 4 mg/mL intravenous cartridge (1 mL)] Route: IVP; Site: rs3 left antecubital; 23:03 Follow up: Response: Pain is decreased rs3 Point of Care Testing: Urine : 20:56 hCG Reading: Negative; Control Reading: Positive; ck1 Ranges: Order Results: Lab Order: Basic Metabolic Profile; SPEC'M 09/07/16 21:02 Test: GLUCOSE, FASTING; Value: 105; Range: 70-105; Units: MG/DL; Status: F Test: BLOOD UREA NITROGEN; Value: 15; Range: 7-18; Units: MG/DL; Status: F Test: CREATININE FOR GFR; Value: 0.69; Range: 0.55-1.02; Units: MG/DL; Status: F Test: GLOMERULAR FILTRATION RATE; Value: > 60.0; Range: >58; Status: F Test: SODIUM LEVEL; Value: 140; Range: 136-145; Units: MEQ/L; Status: F Test: POTASSIUM SERUM; Value: 3.9; Range: 3.5-5.1; Units: MEQ/L; Status: F Test: CHLORIDE LEVEL; Value: 107; Range: 98-107; Units: MEQ/L; Status: F Test: CARBON DIOXIDE LEVEL; Value: 24; Range: 21-32; Units: MEQ/L; Status: F Test: ANION GAP; Value: 9; Range: 8-16; Units: MEQ/L; Status: F Test: CALCIUM LEVEL; Value: 8.2; Range: 8.5-10.1; Abnormal: Below low normal; Units: MG/DL; Status: F Test Note: ; Units are mL/min/1.73 m2 Chronic Kidney Disease Staging per NKF: Stage I & II GFR >=60 Normal to Mildly Decreased Stage III GFR 30-59 Moderately Decreased Stage IV GFR 15-29 Severely Decreased Stage V GFR <15 Very Little GFR Left ESRD GFR <15 on BREAK OUT MAN Lab Order: CBC with Diff; SPEC'M 09/07/16 21:02 Test: WHITE BLOOD COUNT; Value: 8.4; Range: 4.0-10.0; Units: K/mm3; Status: F Test: RED BLOOD COUNT; Value: 4.09; Range: 4.00-5.40; Units: M/mm3; Status: F Test: HEMOGLOBIN; Value: 13.3; Range: 12.0-16.0; Units: g/dl; Status: F Test: HEMATOCRIT; Value: 38.8; Range: 36.0-47.0; Units: %; Status: F Test: MEAN CORPUSCULAR VOLUME; Value: 94.8; Range: 80.0-96.0; Units: fl; Status: F Test: MEAN CORPUSCULAR HEMOGLOBIN; Value: 32.6; Range: 27.0-33.0; Units: pg; Status: F Test: MEAN CORPUSCULAR HGB CONC; Value: 34.4; Range: 32.0-36.5; Units: g/dl; Status: F Test: RED CELL DISTRIBUTION WIDTH; Value: 13.1; Range: 11.5-14.5; Units: %; Status: F Test: PLATELET COUNT, AUTOMATED; Value: 244; Range: 150-450; Units: k/mm3; Status: F Test: NEUTROPHILS %; Value: 92.5; Range: 36.0-66.0; Abnormal: Above high normal; Units: %; Status: F Test: LYMPH %; Value: 2.5; Range: 24.0-44.0; Abnormal: Below low normal; Units: %; Status: F Test: MONO %; Value: 2.8; Range: 0.0-5.0; Units: %; Status: F Test: EOS %; Value: 0.1; Range: 0.0-3.0; Units: %; Status: F Test: BASO %; Value: 1.7; Range: 0.0-1.0; Abnormal: Above high normal; Units: %; Status: F Test: LARGE UNSTAINED CELL %; Value: 0.3; Range: 0.0-4.0; Units: %; Status: F Test: NEUTROPHILS #; Value: 7.8; Range: 1.8-7.7; Abnormal: Above high normal; Units: K/mm3; Status: F Test: LYMPH #; Value: 0.2; Range: 1.5-4.5; Abnormal: Below low normal; Units: K/mm3; Status: F Test: MONO #; Value: 0.2; Range: 0.0-0.8; Units: K/mm3; Status: F Test: EOS #; Value: 0.0; Range: 0.0-0.50; Units: K/mm3; Status: F Test: BASO #; Value: 0.1; Range: 0.0-0.2; Units: K/mm3; Status: F Test: LARGE UNSTAINED CELL #; Value: 0.0; Range: 0.0-0.4; Units: K/mm3; Status: F Lab Order: Lipase; [facility] 09/07/16 21:02 Test: LIPASE; Value: 60; Range: 73-393; Abnormal: Below low normal; Units: U/L; Status: F Lab Order: Liver Profile; [facility] 09/07/16 21:02 Test: AST/SGOT; Value: 8; Range: 15-37; Abnormal: Below low normal; Units: U/L; Status: F Test: ALT/SGPT; Value: 15; Range: 12-78; Units: U/L; Status: F Test: ALKALINE PHOSPHATASE; Value: 63; Range: 45-117; Units: U/L; Status: F Test: BILIRUBIN,TOTAL; Value: 1.2; Range: 0.2-1.0; Abnormal: Above high normal; Units: MG/DL; Status: F Test: BILIRUBIN,DIRECT; Value: 0.2; Range: 0.0-0.2; Units: MG/DL; Status: F Test: TOTAL PROTEIN; Value: 6.7; Range: 6.4-8.2; Units: GM/DL; Status: F Test: ALBUMIN; Value: 3.7; Range: 3.2-5.2; Units: GM/DL; Status: F Test: ALBUMIN/GLOBULIN RATIO; Value: 1.23; Range: 1.00-1.93; Status: F Lab Order: Urinalysis; [facility] 09/07/16 20:49 Test: APPEARANCE, URINE; Value: HAZY; Range: CLEAR; Status: F Test: COLOR, URINE; Value: YELLOW; Range: YELLOW; Status: F Test: PH,URINE; Value: 6.0; Range: 5.0-9.0; Units: UNITS; Status: F Test: SPECIFIC GRAVITY URINE AUTO; Value: 1.024; Range: 1.002-1.035; Status: F Test: PROTEIN, URINE AUTO; Value: NEGATIVE; Range: NEGATIVE; Units: mg/dL; Status: F Test: GLUCOSE, URINE (UA) AUTO; Value: NEGATIVE; Range: NEGATIVE; Units: mg/dL; Status: F Test: KETONE, URINE AUTO; Value: NEGATIVE; Range: NEGATIVE; Units: mg/dL; Status: F Test: UROBILINOGEN, URINE AUTO; Value: 0.2; Range: 0.0-2.0; Units: mg/dL; Status: F Test: BILIRUBIN, URINE AUTO; Value: NEGATIVE; Range: NEGATIVE; Status: F Test: NITRITE, URINE AUTO; Value: NEGATIVE; Range: NEGATIVE; Status: F Test: LEUKOCYTE ESTERASE, URINE AUTO; Value: NEGATIVE; Range: NEGATIVE; Status: F Test: BLOOD, URINE BLOOD; Value: 1+; Range: NEGATIVE; Abnormal: Above high normal; Status: F Test: WBC, URINE AUTO; Value: 1; Range: 0-3; Units: /HPF; Status: F Test: RBC, URINE AUTO; Value: 11; Range: 0-3; Abnormal: Above high normal; Units: /HPF; Status: F Test: BACTERIA, URINE AUTO; Value: NEGATIVE; Range: NEGATIVE; Status: F Test: SQUAMOUS EPITHELIAL CELL UR AU; Value: 4; Range: 0-6; Units: /HPF; Status: F Test: MUCUS, URINE; Value: SMALL; Range: NEGATIVE; Status: F Test: HYALINE CAST, URINE AUTO; Value: 0; Range: 0-1; Units: /LPF; Status: F Lab Order: Urine Culture; SPEC'M 09/07/16 20:49 Test: URINE CULTURE; Value: URINE CULTURE RESULT SPECIMEN APPEARS CONTAMINATED; Status: F Radiology Order: CT ABD & PELVIS: IV Contrast Only Test: CT ABD & PELVIS: IV Contrast Only REASON FOR EXAMINATION: right sided abd pain; ; CT of the abdomen and pelvis with contrast; Clinical statement: Pain.; Technique: Multiple axial CT images were obtained from the base of the lungs through the floor of the; pelvis utilizing 5 mm axial slices after administration of nonionic intravenous contrast. Coronal an; d sagittal reconstructions were also obtained.; No comparison is available.; Findings:; Chest: The visualized lung bases are clear.; Abdomen: The liver, spleen, pancreas, kidneys, gallbladder, and adrenal glands are unremarkable. The; aorta is within normal limits. There is no evidence of abdominal lymphadenopathy or ascites.; Pelvis: The bowel is unremarkable, with no obstructive or inflammatory changes. The appendix is not c; learly identified, but now surrounding inflammatory changes are appreciated in the right lower quadra; nt. The urinary bladder is within normal limits. There is a large solid mass in the posterior uterine; fundus, measuring 9.2 x 7.9 cm. Diffuse heterogeneous enhancement of this lesion is noted. The adnex; a are otherwise unremarkable.. There is no evidence of pelvic lymphadenopathy or ascites.; Bones: There are no suspicious osseous abnormalities seen.; Impression:; 1. Large enhancing posterior uterine fundal mass, most consistent with a fibroid. If there is further; clinical concern, ultrasound could be performed.; 2. No obstructive or inflammatory bowel changes.; ; Outcome: 23:21 Discharge ordered by Provider. mo1 23:41 Discharge Assessment: Patient awake, alert and oriented x 3. No cognitive and/or ka4 functional deficits noted. Patient verbalized understanding of disposition instructions. patient administered narcotics - yes. Pt provided with safe discharge. The following High Risk Discharge criteria are identified: None. Discharged to home ambulatory. Condition: good Condition: stable. CT Study completed. Property :Personal belongings accompany Pt. 23:42 Patient left the ED. ka4 Signatures: Dispatcher [employer] EDMS Shahla Pope, Reg Reg gb Gin Nguyen,RN RN ck1 Lauren SpringRN RN rs3 Barney Minaya [facility] Siri Ernandez RN RN ttb O'Hagan, Michael, PA PA mo1 Pranav Cruz RN RN jmb Anderson, Kodie,URIEL MENJIVARN ka4 Rosangela Auguste Chart Complete MTDD
== END 2016-09-07 23:42 | disposition home or self-care (01) ==
LOC: M ED 18:04
DX: D25.9 Leiomyoma of uterus, unspecified (principal); R11.2 Nausea with vomiting, unspecified; R10.84 Generalized abdominal pain; Z72.0 Tobacco use; Z88.5 Allergy status to narcotic agent; Z88.6 Allergy status to analgesic agent
CPT/HCPCS: 36415; 74177; 80048; 80076; 81001; 81025; 83690; 85025; 87086; 96374; 96375; 99284; J1885; J2405; Q9967